=== PATIENT | female | born 1990 | race American Indian/Alaskan Native ===

== ENCOUNTER 2019-01-01 21:13 | Emergency (ER) | payer OTHER ==
[2019-01-01 22:10] VITALS: BP 98/70
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
[2019-01-02] MEDS ORDERED: IBUPROFEN PO ONE (00:50)
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
== END 2019-01-02 01:33 | disposition home or self-care (01) ==
LOC: ED 21:13
DX: S56.912A Strain of unspecified muscles, fascia and tendons at forearm level, left arm, initial encounter (principal); S20.212A Contusion of left front wall of thorax, initial encounter; Z88.2 Allergy status to sulfonamides; F17.200 Nicotine dependence, unspecified, uncomplicated; V49.49XA Driver injured in collision with other motor vehicles in traffic accident, initial encounter; Y93.89 Activity, other specified; Y92.410 Unspecified street and highway as the place of occurrence of the external cause; Y99.8 Other external cause status